=== PATIENT | male | born 1995 | race African-American/Black ===

== ENCOUNTER 2024-05-16 13:02 | Emergency (ER) | payer SELFPAY ==
[~2024-05-16] VITALS: Ht 180.3 cm; Wt 93.5 kg
[2024-05-16 13:04] VITALS: BP 97/67; PULSE 119; RESP 24; TEMP 97.5; O2SAT 99
--- NOTE | 2024-05-16 13:21 | NUR ---
Dr. Vela notified patient eloped, removed all monitoring cables and got dressed, stated "I don't do hospitals".
== END 2024-05-16 13:21 | disposition left against medical advice (07) ==
LOC: ER 13:02
DX: M54.50 Low back pain, unspecified (principal); R10.9 Unspecified abdominal pain; Z88.6 Allergy status to analgesic agent
CPT/HCPCS: 99283; J7030